=== PATIENT | female | born 1970 | race American Indian/Alaskan Native ===

== ENCOUNTER 2018-05-26 09:11 | Outpatient (CLI) | payer OTHER ==
--- NOTE | 2018-05-26 15:14 | Mammography Report ---
BILATERAL DIGITAL SCREENING MAMMOGRAM with CAD: 05/26/18 CLINICAL: Routine screening. COMPARISON:None available. However, a prior mammogram was apparently done at the [facility], [place], [place]. FINDINGS: The breasts are heterogeneously dense, which may obscure small masses. Bilateral parenchymal asymmetries require comparison with a prior mammogram or additional imaging.No architectural distortion or suspicious calcifications. IMPRESSION: Bilateral asymmetries requiring further evaluation. BI-RADS CATEGORY: 0 -- Additional Evaluation Required RECOMMENDATION: Comparison with a previous mammogram. We will attempt to obtain a prior mammogram for comparison. If we do not obtain a prior mammogram within 30 days, a revised report will be issued recommending a recall for additional imaging. Please be advised that the patient should not schedule an appointment for return until adequate time (at least 2 weeks) has passed for us to obtain the prior mammogram. ACR BI-RADS MAMMOGRAPHIC CODES: 0 = Needs additional imaging evaluation; 1 = Negative; 2 = Benign; 3 = Probably benign; 4 = Suspicious; 5 = Malignant; 6 = Known biopsy-proven malignancy COMMENT: 1. Dense breast tissue, i.e., adenosis, fibrocystic changes, etc., may obscure an underlying neoplasm. 2. Approximately 10% of cancers are not detected with mammography. 3. A negative mammography report should not delay biopsy if a clinically suspicious mass is present. COMMENT: Patient follow-up letters are generated via our [employer] application.
== END 2018-05-26 09:12 | disposition home or self-care (01) ==
LOC: MAMMO 09:11
PROVIDERS: ATTEND Internal Medicine
DX: Z12.31 Encounter for screening mammogram for malignant neoplasm of breast (principal)
CPT/HCPCS: 77067

== ENCOUNTER 2018-07-16 09:02 | Outpatient (CLI) | payer OTHER ==
--- NOTE | 2018-07-16 13:29 | Mammography Report ---
BILATERAL DIGITAL DIAGNOSTIC MAMMOGRAM and LEFT BREAST ULTRASOUND: 07/16/18 09:02:00 CLINICAL: Recalled for bilateral asymmetries COMPARISON:05/26/18 screening FINDINGS: Additional views of the right breast were performed and are negative. Additional views of the left breast were performed and demonstrate a persistent asymmetry on rolled lateral and spot compression CC views. Ultrasound of the upper left breast was performed and demonstrated a questionable oval solid relatively smooth mass at 12 o'clock 6 cm from the nipple. It is isoechoic with adjacent fat and has a similar heterogeneous echo pattern. It measures 9 x 11 x 4 mm. An oval smooth mass versus benign fat lobule at 9 o'clock 2 cm from the nipple measures 9 x 4 x 9 mm. IMPRESSION: Probably benign left mammographic asymmetries and probably benign fat lobules at 12 o'clock 2 cm from the nipple and at 9 o'clock 2 cm from nipple. BI-RADS CATEGORY: 3 - - Probably Benign RECOMMENDATION: 6 month followup left mammogram and targeted left breast ultrasound to reevaluate possible masses at 12 o'clock and 9 o'clock. COMMENT: 1. Dense breast tissue, i.e., adenosis, fibrocystic changes, etc., may obscure an underlying neoplasm. 2. Approximately 10% of cancers are not detected with mammography. 3. A negative mammography report should not delay biopsy if a clinically suspicious mass is present. COMMENT: Patient follow-up letters are generated via our [employer] application.
== END 2018-07-16 09:03 | disposition home or self-care (01) ==
LOC: MAMMO 09:02
PROVIDERS: ATTEND Internal Medicine
DX: R92.8 Other abnormal and inconclusive findings on diagnostic imaging of breast (principal)
CPT/HCPCS: 77066

== ENCOUNTER 2019-06-18 14:40 | Outpatient (CLI) | payer OTHER ==
--- NOTE | 2019-06-18 16:36 | Mammography Report ---
BILATERAL DIGITAL DIAGNOSTIC MAMMOGRAM WITH CAD 06/18/2019 LEFT LIMITED BREAST ULTRASOUND INDICATION: Follow-up of an upper mammographic asymmetry and abnormalities identified on the 9 ultrasound. A six-month follow-up was recommended after that exam but she went to [facility] for her foll ow-up and a recommended and additional 6 month follow-up. TECHNIQUE: Digital bilateral mammographic imaging was performed. Spot compression views were obtaine d. Limited ultrasound was performed. This examination was interpreted with the benefit of Computer- ded Detection (CAD) analysis. COMPARISON: 07/16/2018 left breast ultrasound and mammograms from 07/16/2018 and 05/26/2018 FINDINGS: Breast Density: The breasts are heterogeneously dense, which may obscure small masses. MAMMOGRAPHIC FINDINGS: The previously identified mammographic asymmetry is no longer identified. Foster lexa, there is an upper asymmetry which persists with spot compression. ULTRASOUND FINDINGS: Targeted ultrasound evaluation was performed of the area of interest. Ultrasou nd of the upper left breast was performed and demonstrated an oval irregular solid heterogeneous hypo echoic mass at 12:00 4 cm from the nipple. It measures 1.0 x 0.5 x 0.8 cm. It is larger and has becom e irregular since the 07/16/2018 exam. No other significant finding. IMPRESSION: A solid 1 cm left breast mass at 12:00 4 cm from the nipple. Recommend ultrasound-guided needle biopsy. The patient was informed of the recommendation for biopsy at the time of the exam. Follow up recommendation: Biopsy BI-RADS Category 4: Suspicious for Malignancy. A "normal" or negative report should not discourage follow up or biopsy of a clinically significant f inding. A written summary of these findings will be mailed to the patient. The patient will be entered into a mammography reporting system which will generate a reminder letter for the patient's next appointmen t at the appropriate interval. According to the [employer], yearly mammograms are recommended starting at age 40 and continuing as long as a woman is in good health. Breast MRI is recommended for women with an sandro roximately 20-25% or greater lifetime risk of breast cancer, including women with a strong family his tory of breast or ovarian cancer and women who have been treated for Hodgkin's disease. Signer Name: Wallace Holliday MD Signed: 06/18/2019 4:32 PM Workstation Name: [id number]
== END 2019-06-18 14:41 | disposition home or self-care (01) ==
LOC: MAMMO 14:40
PROVIDERS: ATTEND Internal Medicine
DX: R92.8 Other abnormal and inconclusive findings on diagnostic imaging of breast (principal)
CPT/HCPCS: 77066

== ENCOUNTER 2019-06-24 08:36 | Outpatient (CLI) | payer OTHER ==
--- NOTE | 2019-06-24 10:37 | Ultrasound Report ---
ULTRASOUND-GUIDED NEEDLE CORE BIOPSY LEFT BREAST WITH CLIP PLACEMENT CLINICAL: Left breast mass at 12:00 4 cm from the nipple. FINDINGS: The procedure was explained to the patient and informed consent was obtained. Ultrasound demonstrated the previously identified mass. I marked the breast with a felt tip marker and a timeout was called. The skin was prepped with Chloro -Prep and anesthetized with 1% lidocaine. Needle core biopsy was performed through small dermatotomy using ultrasound guidance, 2% lidocaine wi th epinephrine for deep anesthesia and a 14-gauge Achieve biopsy device. 4 cores were obtained and pl aced in formalin. A clip was deployed within the mass. The patient tolerated the procedure well and there were no apparent complications. Hemostasis was ach ieved with minimal effort and a sterile dressing was applied. A post procedure mammogram demonstrated concordant clip deployment. She left the department in good c ondition and was given instructions for wound care and follow-up. IMPRESSION: Uncomplicated ultrasound guided needle core biopsy with clip placement left breast. Signer Name: Wallace Holliday MD Signed: 06/24/2019 10:32 AM Workstation Name: [id number]
--- NOTE | 2019-06-24 10:39 | Mammography Report ---
DIGITAL DIAGNOSTIC MAMMOGRAM WITH CAD, 06/24/2019 INDICATION: Immediately after ultrasound-guided needle biopsy. -Post clip Lt TECHNIQUE: Digital left mammographic imaging was performed. This examination was interpreted with the benefit of Computer-aided Detection analysis. COMPARISON: 06/18/2019 FINDINGS: Breast Density: The breast is heterogeneously dense, which may obscure small masses. A biopsy clip is identified in the upper outer quadrant and correlates with the mass identified by dagmar vanessa. IMPRESSION: Concordant clip deployment. Follow up recommendation: No recall. Post biopsy imaging. A "normal" or negative report should not discourage follow up or biopsy of a clinically significant f inding. A written summary of these findings will be mailed to the patient. The patient will be entered into a mammography reporting system which will generate a reminder letter for the patient's next appointmen t at the appropriate interval. According to the [employer], yearly mammograms are recommended starting at age 40 and continuing as long as a woman is in good health. Breast MRI is recommended for women with an sandro roximately 20-25% or greater lifetime risk of breast cancer, including women with a strong family his tory of breast or ovarian cancer and women who have been treated for Hodgkin's disease. Signer Name: Wallace Holliday MD Signed: 06/24/2019 10:34 AM Workstation Name: [id number]
== END 2019-06-24 08:37 | disposition home or self-care (01) ==
LOC: SPVWC 08:36
PROVIDERS: ATTEND Internal Medicine
DX: N63.21 Unspecified lump in the left breast, upper outer quadrant (principal)
CPT/HCPCS: 88305; 88342